=== PATIENT | female | born 1995 | race Caucasian/White ===

== ENCOUNTER 2016-06-30 16:28 | Observation (INO) | payer BC, OTHER ==
[2016-06-30 17:06] LABS: HEMOGLOBIN 12.5 gm/dl (12.3-15.3); RED BLOOD COUNT 4.69 M/UL (4.00-5.10); WHITE BLOOD COUNT 10.7 K/UL (4.5-11.0)
== END 2016-06-30 20:01 | disposition other institution (70) ==
LOC: GENOP 16:28 → OB 16:47
PROVIDERS: ADMIT Obstetrics & Gynecology
DX: O13.3 Gestational [pregnancy-induced] hypertension without significant proteinuria, third trimester (principal); O99.343 Other mental disorders complicating pregnancy, third trimester; F90.9 Attention-deficit hyperactivity disorder, unspecified type; F41.9 Anxiety disorder, unspecified; O12.03 Gestational edema, third trimester; Z3A.29 29 weeks gestation of pregnancy; Z79.899 Other long term (current) drug therapy
CPT/HCPCS: 36415; 81001; 82248; 82565; 82570; 84156; 84450; 84460; 84550; 85025; 85379; 85384; 85610; 85730; 96365; 96366; 96372; 96374; 96375; 96376; G0378; J0702; J3475; J7120

== ENCOUNTER 2016-09-27 14:40 | Emergency (ER) | payer BC, MEDICARE ==
[2016-09-27 16:46] LABS: HEMOGLOBIN 13.2 gm/dl (12.3-15.3); RED BLOOD COUNT 5.07 M/UL (4.00-5.10)
[2016-09-27 17:15] LABS: BUN/CREATININE RATIO 12 (0-10)
== END 2016-09-27 20:45 | disposition home or self-care (01) ==
LOC: ER1 14:40
PROVIDERS: Physician Assistant
DX: O11.5 Pre-existing hypertension with pre-eclampsia, complicating the puerperium (principal); O10.03 Pre-existing essential hypertension complicating the puerperium; R51 Headache; Z88.1 Allergy status to other antibiotic agents
CPT/HCPCS: 36415; 70450; 80053; 81001; 85025; 93005; 99284

== ENCOUNTER 2021-05-26 13:33 | Emergency (ER) | payer OTHER ==
[2021-05-26] MEDS ORDERED: TENORMIN 50 MG50 MG PO (22:24)
== END 2021-05-26 14:28 | disposition left against medical advice (07) ==
LOC: ER1 13:33
DX: Z53.21 Procedure and treatment not carried out due to patient leaving prior to being seen by health care provider (principal)
CPT/HCPCS: 93005

== ENCOUNTER 2021-05-26 16:36 | Emergency (ER) | payer OTHER ==
[2021-05-26 17:07] LABS: HEMOGLOBIN 13.6 gm/dl (12.3-15.3); RED BLOOD COUNT 5.12 M/UL (4.00-5.10); WHITE BLOOD COUNT 6.9 K/UL (4.5-11.0)
[2021-05-26 18:29] LABS: BUN/CREATININE RATIO 10 (0-10)
[2021-05-26] MEDS ORDERED: TENORMIN 50 MG50 MG PO (22:24)
== END 2021-05-26 22:36 | disposition home or self-care (01) ==
LOC: ER1 16:36
PROVIDERS: Physician Assistant
DX: I10 Essential (primary) hypertension (principal)
CPT/HCPCS: 80053; 82550; 82553; 83874; 84484; 85025; 96374; 99283; J2060